=== PATIENT | female | born 1985 | race Caucasian/White ===

== ENCOUNTER 2016-04-26 12:25 | Emergency (ER) | payer BC, SELFPAY ==
[2016-04-26 13:09] LABS: Bilirubin Negative (Negative); Blood, Urine Trace (Negative); Clarity Clear (Clear); Glucose, Urine (Dipstick) Negative (Negative); Leukocyte Trace (Negative); Nitrite Negative (Negative); Protein, Urine (Dipstick) Negative (Neg-Trace); Specific Gravity, Urine 1.025 (1.005-1.030)
[2016-04-26 13:11] LABS: Bacteria/HPF Rare-Few HPF (None Seen); RBC/HPF 0-3 HPF (0-3); WBC/HPF 0-3 HPF (0-3)
[2016-04-26 13:16] LABS: Amphetamine Not Detected (NotDetected); Barbiturates Screen Not Detected (NotDetected); Benzodiazepine Screen Not Detected (NotDetected); Cocaine Metabolite Screen Not Detected (NotDetected); Medtox Control Line Valid? VALID (VALID); Methadone Not Detected (NotDetected); Methamphetamine Not Detected (NotDetected); Opiate Screen Not Detected (NotDetected); Oxycodone Screen Not Detected (NotDetected); Phencyclidine (PCP) Not Detected (NotDetected); THC/Cannabinoid Screen Not Detected (NotDetected); Tricyclic Screen Not Detected (NotDetected)
--- NOTE | 2016-04-26 14:46 | ERRECORD ---
[facility] EMERGENCY RECORD HPI ABDOMINAL PAIN (SatApr 27, 2016 00:14 LLDO) CHIEF COMPLAINTS: Patient presents for evaluation of abdominal pain, Denies abdominal distention, Denies bloating, Patient presents for evaluation of pt was here and left the ed initially w/o being triaged or seen. came back later and was seen. primary problem is some minor but recurrent cramping. no bleeding or clots or tissue. HISTORIAN: History provided by patient, History provided by patient's spouse. LOCATION FEMALE: Symptoms are generalized. QUALITY: Pain is dull in nature, described as aching, described as cramping. SEVERITY: Maximum severity of symptoms mild, Currently symptoms are mild. TIME COURSE: Patient unable to describe onset of symptoms, Symptoms are intermittent, There has been no change in the patient's symptoms over time. ASSOCIATED WITH FEMALE: No associated symptoms. MODIFYING FACTORS FEMALE: Patient . RELIEVED BY: Patient's condition relieved by time. EXACERBATED BY: Patient's condition exacerbated by nothing. RISK FACTORS FEMALE: Ectopic risk factors:, not applicable for this patient, Abdominal aortic aneurysm risk factors, not applicable for this patient, Coronary artery disease risk factors, not applicable for this patient. ROS CONSTITUTIONAL: Negative constitutional review of systems. (SatApr 27, 2016 00:28 LLDO) EYES: Negative eye review of systems, Historian denies eye pain, denies eye redness, denies eye discharge. (SatApr 27, 2016 00:40 LLDO) ENT: Negative ears, nose, throat review of systems, Historian denies epistaxis, denies rhinorrhea, denies sinus pain, denies sore throat. (SatApr 27, 2016 00:40 LLDO) CARDIOVASCULAR: Negative cardiovascular review of systems, Historian denies chest pain, no radiation, Historian denies diaphoresis, denies syncope. (SatApr 27, 2016 00:40 LLDO) RESPIRATORY: Negative respiratory review of systems, Historian denies cough, denies shortness of breath, denies sputum. (SatApr 27, 2016 00:40 LLDO) GI: Historian reports abdominal pain, denies constipation, denies diarrhea, denies hematemesis, denies hematochezia, denies jaundice, denies melena, reports nausea, denies stool changes, denies vomiting. (SatApr 27, 2016 00:28 LLDO) GENITOURINARY FEMALE: Historian reports . (SatApr 27, 2016 00:28 LLDO) MUSCULOSKELETAL: Negative musculoskeletal review of systems, Historian denies arthralgias, denies back pain, denies injury, denies myalgias, denies neck pain. (SatApr 27, 2016 00:40 LLDO) SKIN: Negative skin review of systems, Historian denies &a-1R&a+25V*p+0X*s2024D*c202B*c15G*c2P*p-0X&a-25V&a+1R Name: Kay Beatty : 1985 F30 MedRec: [id number] AcctNum: [id number] Prepared: SatApr 27, 2016 00:43 by Interface Page 1 of 4 pMD [facility] EMERGENCY RECORD cellulitis, denies rash, denies skin changes, denies skin lesions. (SatApr 27, 2016 00:40 LLDO) NEUROLOGIC: Negative neurologic review of systems, Historian denies confusion, denies dizziness, denies focal weakness, denies mental status changes. (SatApr 27, 2016 00:40 LLDO) HEMO/LYMPHATIC: Normal hematologic/lymphatic system review, Historian denies abnormal blood clotting, denies gum bleeding, denies petechiae. (SatApr 27, 2016 00:40 LLDO) ALLERGIC/IMMUNOLOGIC: Normal allergy/immunologic system review, Historian denies eczema, denies environmental allergies, denies food allergies. (SatApr 27, 2016 00:40 LLDO) PSYCHIATRIC: Negative psychiatric review of systems, Historian denies alcohol abuse, denies anxiety, denies depression, denies drug abuse, denies hallucinations. (SatApr 27, 2016 00:40 LLDO) NOTES: All systems reviewed, negative except as described above. (SatApr 27, 2016 00:28 LLDO) PAST MEDICAL HISTORY MEDICAL HISTORY: Past medical history includes history of hypertension, NO MEDS., No past medical history, Flu vaccine not up to date, Tetanus not up to date, Pneumococcal vaccine not up to date, No past medical history, Flu vaccine not up to date, Tetanus not up to verified 03/11/15. (12:47 CJEF) FEMALE SURGICAL HISTORY: Patient has no surgical history. verified 12/4/15. (12:47 CJEF) PSYCHIATRIC HISTORY: No previous psychiatric history. verified 03/11/15. (12:47 CJEF) SOCIAL HISTORY: Patient denies alcohol use, Patient denies drug use, Patient currently uses tobacco, smokes cigarettes, Lives at home, with family, Patient denies alcohol use, Patient currently uses tobacco, smokes cigarettes, Occasional or some day smoker. verified 03/11/15. (12:47 CJEF) NOTES: Nursing records reviewed, Agree with nursing records, Medication list reviewed. (SatApr 27, 2016 00:40 LLDO) KNOWN ALLERGIES No Known Drug Allergies CURRENT MEDICATIONS (12:46 CJEF) Multivit with Iron: TABLET : Strength - 27 mg iron-800 mcg : ORAL Patient Dose: Unknown. VITAL SIGNS (12:41 CJEF) VITAL SIGNS: BP: 107/71, Pulse: 85, Resp: 22, Temp: 98.7 (Oral), Pain: 6 (Intermittent), O2 sat: 98 on Room Air, Time: 04/26/2016 12:41. PHYSICAL EXAM CONSTITUTIONAL: Vital Signs Reviewed, Patient afebrile, Pulse &a-1R&a+25V*p+0X*b0974W*c202B*c15G*c2P*p-0X&a-25V&a+1R Name: Kay Beatty : 1985 F30 MedRec: [id number] AcctNum: [id number] Prepared: SatApr 27, 2016 00:43 by Interface Page 2 of 4 pMD [facility] EMERGENCY RECORD normal, Blood pressure normal, Respiratory rate normal, Patient appears non toxic, Patient appears, in mild pain distress, Patient alert and oriented to person, place and time, Nursing notes reviewed. (SatApr 27, 2016 00:30 LLDO) HEAD: Head exam normal, Head exam included findings of head atraumatic, normocephalic. (SatApr 27, 2016 00:40 LLDO) EYES: Eye exam normal, Eye exam included findings of eyelids normal to inspection, Pupils equally round and reactive to light, Extraocular muscles intact. (SatApr 27, 2016 00:40 LLDO) ENT: ENT exam normal, Ear exam normal, Nose exam normal. (SatApr 27, 2016 00:40 LLDO) NECK: Neck exam normal, Neck exam included findings of normal range of motion, Trachea midline, no meningeal signs, no tenderness. (SatApr 27, 2016 00:40 LLDO) RESPIRATORY CHEST: Respiratory and chest exam normal, Respiratory exam included findings of, Chest exam included findings of chest movement symmetrical, Chest expansion equal. (SatApr 27, 2016 00:40 LLDO) CARDIOVASCULAR: Cardiovascular assessment normal, Cardiovascular exam included findings of heart rate regular rate and rhythm, Heart sounds normal. (SatApr 27, 2016 00:40 LLDO) ABDOMEN FEMALE: Abdominal exam included findings of abdomen nontender, Bowel sounds normal, fht 146. uterus. (SatApr 27, 2016 00:30 LLDO) BACK: Back exam normal, Back exam included findings of normal inspection, range of motion normal. (SatApr 27, 2016 00:40 LLDO) UPPER EXTREMITY: Upper extremity exam normal, Upper extremity exam included findings of inspection normal, Range of motion normal. (SatApr 27, 2016 00:40 LLDO) LOWER EXTREMITY: Lower extremity exam normal, Lower extremity exam included findings of inspection normal, Range of motion normal. (SatApr 27, 2016 00:40 LLDO) NEURO: Neuro exam normal, Neuro exam findings include patient oriented to person, place and time, Speech normal, Juan C coma scale 15. (SatApr 27, 2016 00:40 LLDO) SKIN: Skin exam normal, Skin exam included findings of skin warm, dry, and normal in color, no rash. (SatApr 27, 2016 00:40 LLDO) PSYCHIATRIC: Psychiatric exam normal, Psychiatric exam included findings of patient oriented to person place and time, Normal affect. (SatApr 27, 2016 00:40 LLDO) PROBLEM LIST No recorded problems DIAGNOSIS (14:31 LWAL) FINAL: PRIMARY: ERLWBS. PRESCRIPTION No recorded prescriptions &a-1R&a+25V*p+0X*[id number]*c202B*c15G*c2P*p-0X&a-25V&a+1R Name: Kay Beatty Dustin : 1985 F30 MedRec: [id number] AcctNum: [id number] Prepared: SatApr 27, 2016 00:43 by Interface Page 3 of 4 pMD [facility] EMERGENCY RECORD DISPOSITION PATIENT: Disposition Type: Eloped, Disposition: Left Without Being Seen. (14:31 LWAL) Patient left the department. (14:32 LWAL) Patient left the department. (15:15 SCHAzalia) Evans: GUY=[place] Magallon, Barbara SALAS=MD Alea, Tera MOSS=[place] Liu, Jaki CUMMINS=[place] Roth, Slinda &a-1R&a+25V*p+0X*x5038R*c202B*c15G*c2P*p-0X&a-25V&a+1R Name: Kay Beatty : 1985 F30 MedRec: [id number] AcctNum: [id number] Prepared: SatApr 27, 2016 00:43 by Interface Page 4 of 4 pMD MTDD
--- NOTE | 2016-04-26 15:02 | PICIS ---
[facility] EMERGENCY RECORD TRIAGE (12:45 CJEF) TRIAGE NOTES: LOW ABD PAIN, PAIN IN LOWER BACK ON LEFT SIDE ALSO. FOR 2 WEEKS. (12:45 CJEF) PATIENT: NAME: Kay Beatty, AGE: 30, GENDER: female, : Sat1985, TIME OF GREET: Sarai Apr 26, 2016 12:26, PREFERRED LANGUAGE: Bhutanese, ETHNICITY: Not or , FALL RISK: NO, ECODE BILLING MAP: [facility], SSN: [id number], Zip Code: [address], KG WEIGHT: 70.31, PHONE: , , , PERSON ID: [id number], PCP: Hawa James. (12:45 CJEF) COMPLAINT: LOWER ABD PAIN. (12:45 CJEF) ADMISSION: URGENCY: 4 Non Urgent, ADMISSION SOURCE: Home, TRANSPORT: CAR, BED: TRIAGE. (12:45 CJEF) ASSESSMENT: Assessment: LOW ABD PAIN, LOW BACK PAIN FOR 2 WEEKS, PAIN WORSE IN BACK FOR THE PAST WEEK, Symptoms began 2 WEEKS. (12:47 CJEF) PAIN: Location LOW BACK AND LOW ABD, Pain is intermittent. (12:47 CJEF) SIRS SCORING: Heart Rate 55-109 (0), Temp range 96.8-101.1 (0), respiratory rate 12-24 (0), Mental Status altered: no (0), Total SIRS Score 0. (12:47 CJEF) TRIAGE SCREENING: Patient denies suicidal ideation, Patient denies presence of domestic violence. (12:49 CJEF) LMP: Last menstrual period: DEC, , P: 2, AB: 1, Patient is not lactating. (12:47 CJEF) Estimated due date October 27, 2016, Estimated age 13 weeks. (13:13 LWAL) PROVIDERS: TRIAGE NURSE: Barbara Magallon RN. (12:45 CJEF) VITAL SIGNS: BP 107/71, Pulse 85, Resp 22, Temp 98.7, (Oral), Pain 6, (Intermittent), O2 Sat 98, on Room Air, Time 04/26/2016 12:41. (12:41 CJEF) PREVIOUS VISIT ALLERGIES: No Known Drug Allergies. (12:45 CJEF) No Known Drug Allergies. (12:47 CJEF) KNOWN ALLERGIES No Known Drug Allergies CURRENT MEDICATIONS (12:46 CJEF) Multivit with Iron: TABLET : Strength - 27 mg iron-800 mcg : ORAL Patient Dose: Unknown. VITAL SIGNS (12:41 CJEF) VITAL SIGNS: BP: 107/71, Pulse: 85, Resp: 22, Temp: 98.7 (Oral), Pain: 6 (Intermittent), O2 sat: 98 on Room Air, Time: 04/26/2016 12:41. NURSING ASSESSMENT: GENITOURINARY (12:55 SCHI) CONSTITUTIONAL: Patient arrives ambulatory, Gait steady, History obtained from patient, Patient appears comfortable, Patient &a-1R&a+25V*p+0X*j6184I*c202B*c15G*c2P*p-0X&a-25V&a+1R Name: Kay Beatty : 1985 F30 MedRec: [id number] AcctNum: [id number] Prepared: SatApr 27, 2016 00:49 by Interface Page [address] [facility] EMERGENCY RECORD cooperative, Patient alert, Oriented to person, place and time, Skin warm, Skin dry, Skin normal in color, Mucous membranes pink, Mucous membranes moist, Patient is well-groomed, Patient complains of PAIN,PRESSURE, BURNING WITH URINATION. PAIN FEMALE: aching pain, to the lower abdomen, Onset of pain 2 WKS, constant, on a scale 0-10 patient rates pain as 6. GENITOURINARY FEMALE: no associated urinary complaints. ABDOMEN: Abdomen soft, non-tender, no associated nausea. NOTES: Emotional support needed and given, Patient tolerated procedure well. SAFETY: Side rails up, Cart/Stretcher in lowest position, Family at bedside, Hospital ID band on. NURSING PROCEDURE: NURSE NOTES NURSES NOTES: Notes: placed pt back in lobby due to not having a room for the md to see pt. (13:00 LWAL) Notes: updated pt on status. (14:00 LWAL) Notes: front end alignment specialist to call and ask how much longer to be seen. Pt being discharged currently and they would be able to come back to the room. but then they would not be seen quickly. Pt and family left at that time. (14:28 LWAL) NURSING PROCEDURE: URINE COLLECTION (12:55 SCHI) PATIENT IDENTIFIER: Patient actively involved in identification process, Patient's identity verified by patient stating name, Patient's identity verified by patient stating date, Patient's identity verified by hospital ID bracelet. URINE COLLECTION FEMALE: Urine collected by mid-stream clean catch, urine yellow in color, Specimen labeled in the presence of the patient and sent to lab. SAFETY: Side rails up, Cart/Stretcher in lowest position, Family at bedside, Hospital ID band on. ORDER DETAILS Order Name: Culture, Urine, Status: Active, Time: 14:26 04/26/2016, User: MARITZA, - Ordered for: MD Cosby Lloyd, - Entered by: MD Cosby Lloyd - Sarai Apr 26, 2016 14:26, - Quantity: 1, Order Name: Drug Screen, Urine, Status: Active, Time: 12:49 04/26/2016, User: GUY, - Ordered for: MD Cosby Lloyd, - Entered by: GERMANIA Magallon, [facility] Apr 26, 2016 12:49, - Quantity: 1, Order Name: Test, Urine (BHCG), Status: Active, Time: 14:26 04/26/2016, User: LL, - Ordered for: MD Cosby Lloyd, - Entered by: MD Cosby Lloyd - Sarai Apr 26, 2016 14:26, &a-1R&a+25V*p+0X*z8453Q*c202B*c15G*c2P*p-0X&a-25V&a+1R Name: Kay Beatty : 1985 F30 MedRec: [id number] AcctNum: [id number] Prepared: SatApr 27, 2016 00:49 by Interface Page [address] [facility] EMERGENCY RECORD - Quantity: 1, Order Name: Urinalysis w/ Rflx Microscopic, Status: Active, Time: 12:49 04/26/2016, User: [email or web address], - Ordered for: MD Cosby Lloyd, - Entered by: GERMANIA Magallon [facility] Apr 26, 2016 12:49, - Quantity: 1. HPI ABDOMINAL PAIN (SatApr 27, 2016 00:14 LLDO) CHIEF COMPLAINTS: Patient presents for evaluation of abdominal pain, Denies abdominal distention, Denies bloating, Patient presents for evaluation of pt was here and left the ed initially w/o being triaged or seen. came back later and was seen. primary problem is some minor but recurrent cramping. no bleeding or clots or tissue. HISTORIAN: History provided by patient, History provided by patient's spouse. LOCATION FEMALE: Symptoms are generalized. QUALITY: Pain is dull in nature, described as aching, described as cramping. SEVERITY: Maximum severity of symptoms mild, Currently symptoms are mild. TIME COURSE: Patient unable to describe onset of symptoms, Symptoms are intermittent, There has been no change in the patient's symptoms over time. ASSOCIATED WITH FEMALE: No associated symptoms. MODIFYING FACTORS FEMALE: Patient . RELIEVED BY: Patient's condition relieved by time. EXACERBATED BY: Patient's condition exacerbated by nothing. RISK FACTORS FEMALE: Ectopic risk factors:, not applicable for this patient, Abdominal aortic aneurysm risk factors, not applicable for this patient, Coronary artery disease risk factors, not applicable for this patient. ROS CONSTITUTIONAL: Negative constitutional review of systems. (SatApr 27, 2016 00:28 LLDO) EYES: Negative eye review of systems, Historian denies eye pain, denies eye redness, denies eye discharge. (SatApr 27, 2016 00:40 LLDO) ENT: Negative ears, nose, throat review of systems, Historian denies epistaxis, denies rhinorrhea, denies sinus pain, denies sore throat. (SatApr 27, 2016 00:40 LLDO) CARDIOVASCULAR: Negative cardiovascular review of systems, Historian denies chest pain, no radiation, Historian denies diaphoresis, denies syncope. (SatApr 27, 2016 00:40 LLDO) RESPIRATORY: Negative respiratory review of systems, Historian denies cough, denies shortness of breath, denies sputum. (SatApr 27, 2016 00:40 LLDO) GI: Historian reports abdominal pain, denies constipation, denies diarrhea, denies hematemesis, denies hematochezia, denies jaundice, denies melena, reports nausea, denies stool changes, denies vomiting. (SatApr 27, 2016 &a-1R&a+25V*p+0X*r9464Y*c202B*c15G*c2P*p-0X&a-25V&a+1R Name: Kay Beatty : 1985 F30 MedRec: [id number] AcctNum: [id number] Prepared: SatApr 27, 2016 00:49 by Interface Page [address] [facility] EMERGENCY RECORD 00:28 LLDO) GENITOURINARY FEMALE: Historian reports . (SatApr 27, 2016 00:28 LLDO) MUSCULOSKELETAL: Negative musculoskeletal review of systems, Historian denies arthralgias, denies back pain, denies injury, denies myalgias, denies neck pain. (SatApr 27, 2016 00:40 LLDO) SKIN: Negative skin review of systems, Historian denies cellulitis, denies rash, denies skin changes, denies skin lesions. (SatApr 27, 2016 00:40 LLDO) NEUROLOGIC: Negative neurologic review of systems, Historian denies confusion, denies dizziness, denies focal weakness, denies mental status changes. (SatApr 27, 2016 00:40 LLDO) HEMO/LYMPHATIC: Normal hematologic/lymphatic system review, Historian denies abnormal blood clotting, denies gum bleeding, denies petechiae. (SatApr 27, 2016 00:40 LLDO) ALLERGIC/IMMUNOLOGIC: Normal allergy/immunologic system review, Historian denies eczema, denies environmental allergies, denies food allergies. (SatApr 27, 2016 00:40 LLDO) PSYCHIATRIC: Negative psychiatric review of systems, Historian denies alcohol abuse, denies anxiety, denies depression, denies drug abuse, denies hallucinations. (SatApr 27, 2016 00:40 LLDO) NOTES: All systems reviewed, negative except as described above. (SatApr 27, 2016 00:28 LLDO) PAST MEDICAL HISTORY MEDICAL HISTORY: Past medical history includes history of hypertension, NO MEDS., No past medical history, Flu vaccine not up to date, Tetanus not up to date, Pneumococcal vaccine not up to date, No past medical history, Flu vaccine not up to date, Tetanus not up to verified 03/11/15. (12:47 CJEF) FEMALE SURGICAL HISTORY: Patient has no surgical history. verified 12/4/15. (12:47 CJEF) PSYCHIATRIC HISTORY: No previous psychiatric history. verified 03/11/15. (12:47 CJ) SOCIAL HISTORY: Patient denies alcohol use, Patient denies drug use, Patient currently uses tobacco, smokes cigarettes, Lives at home, with family, Patient denies alcohol use, Patient currently uses tobacco, smokes cigarettes, Occasional or some day smoker. verified 03/11/15. (12:47 CJ) NOTES: Nursing records reviewed, Agree with nursing records, Medication list reviewed. (SatApr 27, 2016 00:40 LLDO) PHYSICAL EXAM CONSTITUTIONAL: Vital Signs Reviewed, Patient afebrile, Pulse normal, Blood pressure normal, Respiratory rate normal, Patient appears non toxic, Patient appears, in mild pain distress, Patient alert and oriented to person, place and time, Nursing notes reviewed. (SatApr 27, 2016 00:30 LLDO) HEAD: Head exam normal, Head exam included findings of head atraumatic, normocephalic. (SatApr 27, 2016 00:40 LLDO) &a-1R&a+25V*p+0X*p0379X*c202B*c15G*c2P*p-0X&a-25V&a+1R Name: Kay Beatty : 1985 F30 MedRec: [id number] AcctNum: [id number] Prepared: SatApr 27, 2016 00:49 by Interface Page [address] [facility] EMERGENCY RECORD EYES: Eye exam normal, Eye exam included findings of eyelids normal to inspection, Pupils equally round and reactive to light, Extraocular muscles intact. (SatApr 27, 2016 00:40 LLDO) ENT: ENT exam normal, Ear exam normal, Nose exam normal. (SatApr 27, 2016 00:40 LLDO) NECK: Neck exam normal, Neck exam included findings of normal range of motion, Trachea midline, no meningeal signs, no tenderness. (SatApr 27, 2016 00:40 LLDO) RESPIRATORY CHEST: Respiratory and chest exam normal, Respiratory exam included findings of, Chest exam included findings of chest movement symmetrical, Chest expansion equal. (SatApr 27, 2016 00:40 LLDO) CARDIOVASCULAR: Cardiovascular assessment normal, Cardiovascular exam included findings of heart rate regular rate and rhythm, Heart sounds normal. (SatApr 27, 2016 00:40 LLDO) ABDOMEN FEMALE: Abdominal exam included findings of abdomen nontender, Bowel sounds normal, fht 146. uterus. (SatApr 27, 2016 00:30 LLDO) BACK: Back exam normal, Back exam included findings of normal inspection, range of motion normal. (SatApr 27, 2016 00:40 LLDO) UPPER EXTREMITY: Upper extremity exam normal, Upper extremity exam included findings of inspection normal, Range of motion normal. (SatApr 27, 2016 00:40 LLDO) LOWER EXTREMITY: Lower extremity exam normal, Lower extremity exam included findings of inspection normal, Range of motion normal. (SatApr 27, 2016 00:40 LLDO) NEURO: Neuro exam normal, Neuro exam findings include patient oriented to person, place and time, Speech normal, Juan C coma scale 15. (SatApr 27, 2016 00:40 LLDO) SKIN: Skin exam normal, Skin exam included findings of skin warm, dry, and normal in color, no rash. (SatApr 27, 2016 00:40 LLDO) PSYCHIATRIC: Psychiatric exam normal, Psychiatric exam included findings of patient oriented to person place and time, Normal affect. (SatApr 27, 2016 00:40 LLDO) EVENTS TRANSFER: Triage to Emergency Triage. (Sarai Apr 26, 2016 12:45 CJEF) Emergency Triage to Waiting. (14:18 LWAL) Removed from Emergency Waiting. (14:32 LWAL) Readmit to Emergency Triage. (15:09 SCHI) Removed from Emergency Triage. (15:15 SCHI) PROBLEM LIST No recorded problems DIAGNOSIS (14:31 LWAL) FINAL: PRIMARY: ERLWBS. DISPOSITION &a-1R&a+25V*p+0X*p2134Q*c202B*c15G*c2P*p-0X&a-25V&a+1R Name: Kay Beatty : 1985 F30 MedRec: [id number] AcctNum: [id number] Prepared: SatApr 27, 2016 00:49 by Interface Page [address] [facility] EMERGENCY RECORD PATIENT: Disposition Type: Eloped, Disposition: Left Without Being Seen. (14:31 LWAL) Patient left the department. (14:32 LWAL) Patient left the department. (15:15 SCHI) PRESCRIPTION No recorded prescriptions IMAGING (14:41 LWAL) *SUPPLY CHARGE SHEET: Image captured from scanner. ADMIN DIGITAL SIGNATURE: GERMANIA Roth, Sheryl. (18:54 [facility]) MD Cosby Lloyd. (SatApr 27, 2016 00:41 LLDO) RESULTS (13:19 SCHI) LABORATORY: Drug Screen, Urine Collection DT: [facility] Apr 26, 2016 13:00, THC/Cannabinoid Screen Not Detected , Range (NotDetected), Phencyclidine (PCP) Not Detected , Range (NotDetected), Cocaine Metabolite Screen Not Detected , Range (NotDetected), Methamphetamine Not Detected , Range (NotDetected), Opiate Screen Not Detected , Range (NotDetected), Amphetamine Not Detected , Range (NotDetected), Benzodiazepine Screen Not Detected , Range (NotDetected), Tricyclic Screen Not Detected , Range (NotDetected), Methadone Not Detected , Range (NotDetected), Barbiturates Screen Not Detected , Range (NotDetected), Oxycodone Screen Not Detected , Range (NotDetected), Propoxyphene Screen Not Detected , Range (NotDetected), Drug Screen Cutoff , Range (), The Hometicax Profile-V Panel for Qualitative Drugs of Abuse assays are for, presumptive screening testing only. The drug class and detection limits, are as follows: Drug Class Detection Limit Amphetamine , 500 ng/mL* Barbiturates 200 ng/mL , Benzodiazepines 150 ng/mL* Cocaine 150 ng/mL*, Methamphetamine 500 ng/mL* Methadone 200, ng/mL* Opiates 100 ng/mL* Oxycodone , 100 ng/mL PCP 25 ng/mL Propoxyphene , 300 ng/mL Tricyclic Antidepressants 300 ng/mL Cannabinoids (THC) , 50 ng/mL Tests which yield a presumptive positive result must be , &a-1R&a+25V*p+0X*b3009Q*c202B*c15G*c2P*p-0X&a-25V&a+1R Name: Kay Beatty : 1985 F30 MedRec: [id number] AcctNum: [id number] Prepared: SatApr 27, 2016 00:49 by Interface Page [address] [facility] EMERGENCY RECORD tested using a more specific alternate chemical method in order to obtain, a confirmed analytical result. Additional confirmation and identification, may be ordered on a routine basis, if desired. Presumptive positive urines, are held for two weeks. . Urine Microscopic Collection DT: SatApr 26, 2016 13:00, RBC/HPF 0-3 HPF, Range (0-3), WBC/HPF 0-3 HPF, Range (0-3), *Squamous Epithelial 4-6 - H HPF, Range (0-3), Bacteria/HPF Rare-Few HPF, Range (None Seen). Urinalysis w/ Rflx Microscopic Collection DT: Sarai Apr 26, 2016 13:00, Color Yellow , Range (Yellow), Clarity Clear , Range (Clear), Specific [place], Urine 1.025 , Range (1.005-1.030), pH, Urine 6.0 , Range (5.0-9.0), *Leukocyte Trace - H , Range (Negative), Nitrite Negative , Range (Negative), Protein, Urine (Dipstick) Negative mg/dL, Range (Neg-Trace), Glucose, Urine (Dipstick) Negative mg/dL, Range (Negative), Ketone, Urine Negative mg/dL, Range (Negative), *Urobilinogen 2.0 - H mg/dL, Range (0.2-1.0), Bilirubin Negative , Range (Negative), *Blood, Urine Trace - H , Range (Negative). Evans: GUY=GERMANIA Magallon, Barbara SALAS=MD Alea, Tera MOSS=GERMANIA Liu, Jaki CUMMINS=GERMANIA Roth, Sheryl &a-1R&a+25V*p+0X*s7061Q*c202B*c15G*c2P*p-0X&a-25V&a+1R Name: Kay Beatty : 1985 F30 MedRec: [id number] AcctNum: [id number] Prepared: SatApr 27, 2016 00:49 by Interface Page 7 of 7 pMD MTDD
== END 2016-04-26 14:28 | disposition left against medical advice (07) ==
LOC: MADERS 12:25
DX: O99.89 Other specified diseases and conditions complicating pregnancy, childbirth and the puerperium (principal); R10.9 Unspecified abdominal pain; Z3A.13 13 weeks gestation of pregnancy
CPT/HCPCS: 80306; 81003; 81015

== ENCOUNTER 2016-04-26 15:17 | Emergency (ER) | payer SELFPAY ==
--- NOTE | 2016-04-26 18:18 | ERRECORD ---
[facility] EMERGENCY RECORD HPI ABDOMINAL PAIN (17:56 LLDO) CHIEF COMPLAINTS: Patient presents for evaluation of abdominal pain, Patient presents for evaluation of abdominal distention, Patient presents for evaluation of pt is about 13 weeks and for the past couple of days has been having intermittent cramping insuprapubic and low back. had normal urine earlier today. has already had ultrasound that showed harvey IUP. HISTORIAN: History provided by patient, History provided by patient's spouse. LOCATION FEMALE: Symptoms are generalized, no radiation, No migration of pain. QUALITY: Pain is dull in nature, described as cramping, described as no blood or tissue. SEVERITY: Maximum severity of symptoms mild, Currently symptoms are mild. TIME COURSE: Sudden onset of symptoms, Symptoms are intermittent, There has been no change in the patient's symptoms over time. ASSOCIATED WITH FEMALE: No associated symptoms. RELIEVED BY: Patient's condition relieved by nothing. EXACERBATED BY: Patient's condition exacerbated by nothing. RISK FACTORS FEMALE: No ectopic risk factors present, No abdominal aortic aneurysm risk factors, No coronary artery disease risk factors. ROS CONSTITUTIONAL: Historian reports fatigue. (18:01 LLDO) EYES: Negative eye review of systems, Historian denies eye pain, denies eye redness, denies eye discharge. (18:06 LLDO) ENT: Negative ears, nose, throat review of systems, Historian denies epistaxis, denies rhinorrhea, denies sinus pain, denies sore throat. (18:06 LLDO) GENITOURINARY FEMALE: Historian reports . (18:01 LLDO) MUSCULOSKELETAL: Negative musculoskeletal review of systems, Historian denies arthralgias, denies back pain, denies injury, denies myalgias, denies neck pain. (18:06 LLDO) SKIN: Negative skin review of systems, Historian denies cellulitis, denies rash, denies skin changes, denies skin lesions. (18:06 LLDO) NEUROLOGIC: Negative neurologic review of systems, Historian denies confusion, denies dizziness, denies focal weakness, denies mental status changes. (18:06 LLDO) HEMO/LYMPHATIC: Normal hematologic/lymphatic system review, Historian denies abnormal blood clotting, denies gum bleeding, denies petechiae. (18:06 LLDO) ALLERGIC/IMMUNOLOGIC: Normal allergy/immunologic system review, Historian denies eczema, denies environmental allergies, denies food allergies. (18:06 LLDO) PSYCHIATRIC: Negative psychiatric review of systems, Historian denies alcohol abuse, denies anxiety, denies depression, denies drug abuse, denies hallucinations. (18:06 LLDO) &a-1R&a+25V*p+0X*y1686Z*c202B*c15G*c2P*p-0X&a-25V&a+1R Name: Kay Beatty : 1985 F30 MedRec: [id number] AcctNum: [id number] Prepared: [facility] Apr 26, 2016 18:53 by Interface Page 1 of 3 pMD [facility] EMERGENCY RECORD NOTES: All systems reviewed, negative except as described above. (18:01 LLDO) PAST MEDICAL HISTORY MEDICAL HISTORY: Past medical history includes history of hypertension, NO MEDS., No past medical history, Flu vaccine not up to date, Tetanus not up to date, Pneumococcal vaccine not up to date, No past medical history, Flu vaccine not up to date, Tetanus not up to verified 03/11/15. (16:05 SCHI) FEMALE SURGICAL HISTORY: Patient has no surgical history. verified 03/11/15. (16:05 SCHI) PSYCHIATRIC HISTORY: No previous psychiatric history. verified 03/11/15. (16:05 SCHI) SOCIAL HISTORY: Patient denies alcohol use, Patient denies drug use, Patient currently uses tobacco, smokes cigarettes, Lives at home, with family, Patient denies alcohol use, Patient currently uses tobacco, smokes cigarettes, Occasional or some day smoker. verified 03/11/15. (16:05 SCHI) NOTES: Nursing records reviewed, Agree with nursing records, Medication list reviewed. (18:06 LLDO) KNOWN ALLERGIES No Known Drug Allergies CURRENT MEDICATIONS (15:22 SCHI) Multivit with Iron: TABLET : Strength - 27 mg iron-800 mcg : ORAL Patient Dose: Unknown. PHYSICAL EXAM CONSTITUTIONAL: Vital Signs Reviewed, Patient afebrile, Pulse normal, Blood pressure normal, Respiratory rate normal, Patient appears non toxic, Patient appears, in mild pain distress, Patient alert and oriented to person, place and time, Nursing notes reviewed. (18:03 LLDO) HEAD: Head exam normal, Head exam included findings of head atraumatic, normocephalic. (18:06 LLDO) EYES: Eye exam normal, Eye exam included findings of eyelids normal to inspection, Pupils equally round and reactive to light, Extraocular muscles intact. (18:06 LLDO) ENT: ENT exam normal, Ear exam normal, Nose exam normal. (18:06 LLDO) NECK: Neck exam normal, Neck exam included findings of normal range of motion, Trachea midline, no meningeal signs, no tenderness. (18:06 LLDO) ABDOMEN FEMALE: Abdominal exam included findings of abdomen nontender, Bowel sounds normal, Liver normal, Spleen normal, no distension, no mass, no pulsatile masses, no peritoneal signs, Rovsing's sign absent, uterus size appropriate for dates with FHTs of 148. (18:03 LLDO) &a-1R&a+25V*p+0X*v2262L*c202B*c15G*c2P*p-0X&a-25V&a+1R Name: Kay Beatty Dustin : 1985 F30 MedRec: [id number] AcctNum: [id number] Prepared: [facility] Apr 26, 2016 18:53 by Interface Page 2 of 3 pMD [facility] EMERGENCY RECORD PELVIC: Exam findings include complaint of lower abdominal pain, no vaginal bleeding present. (18:03 LLDO) BACK: Back exam included findings of normal inspection, range of motion normal, no tenderness, no costovertebral angle tenderness, no Scoliosis, no pain with straight leg raise. (18:03 LLDO) UPPER EXTREMITY: Upper extremity exam normal, Upper extremity exam included findings of inspection normal, Range of motion normal. (18:06 LLDO) LOWER EXTREMITY: Lower extremity exam normal, Lower extremity exam included findings of inspection normal, Range of motion normal. (18:06 LLDO) NEURO: Neuro exam normal, Neuro exam findings include patient oriented to person, place and time, Speech normal, Shevlin coma scale 15. (18:06 LLDO) SKIN: Skin exam normal, Skin exam included findings of skin warm, dry, and normal in color, no rash. (18:06 LLDO) PSYCHIATRIC: Psychiatric exam normal, Psychiatric exam included findings of patient oriented to person place and time, Normal affect. (18:06 LLDO) PROBLEM LIST No recorded problems DIAGNOSIS (18:07 LLDO) FINAL: PRIMARY: Threatened . PRESCRIPTION (18:08 LLDO) Tylenol-Codeine #3: TABLET : 300 mg-30 mg : ORAL : Quantity: 1-2 Unit: tab(s) Route: ORAL Schedule: every 4 hours prn Dispense: 24 Unit: tab(s) May substitute. Refills: No Refills . NOTES: No Refills. DISPOSITION PATIENT: Disposition Type: Discharge, Disposition: *Discharge Home. (18:07 LLDO) [facility]. [facility] Evans: LLDO=MD Alea, Tera SCHI=GERMANIA Roth, Slinda &a-1R&a+25V*p+0X*p3555B*c202B*c15G*c2P*p-0X&a-25V&a+1R Name: Kay Beatty : 1985 F30 MedRec: [id number] AcctNum: [id number] Prepared: Sarai Apr 26, 2016 18:53 by Interface Page 3 of 3 pMD MTDD
--- NOTE | 2016-04-26 18:24 | PICIS ---
[facility] EMERGENCY RECORD TRIAGE (15:21 SCHI) TRIAGE NOTES: LOW ABD PAIN. (15:21 SCHI) PATIENT: NAME: Kay Beatty, AGE: 30, GENDER: female, : Sat1985, TIME OF GREET: SatApr 26, 2016 15:18, PREFERRED LANGUAGE: Setswana, ETHNICITY: Not or , FALL RISK: NO, ECODE BILLING MAP: [facility], SSN: [id number], Zip Code: [address], KG WEIGHT: 70.31, PHONE: , , , PERSON ID: [id number], PCP: [facility]. (15:21 SCHI) COMPLAINT: LOWER ABD PAIN. (15:21 SCHI) ADMISSION: URGENCY: 4 Non Urgent, ADMISSION SOURCE: Home, TRANSPORT: Walk-in, BED: WAIT. (15:21 SCHI) ASSESSMENT: Assessment: ALERT AND ORIENTED X 4, SKIN WARM AND DRY RESP EVEN AND UNLABORED,. (16:05 SCHI) PROVIDERS: TRIAGE NURSE: Sheryl Roth RN. (15:21 SCHI) PREVIOUS VISIT ALLERGIES: No Known Drug Allergies. (15:21 SCHI) No Known Drug Allergies. (16:05 SCHI) KNOWN ALLERGIES No Known Drug Allergies CURRENT MEDICATIONS (15:22 SCHI) Multivit with Iron: TABLET : Strength - 27 mg iron-800 mcg : ORAL Patient Dose: Unknown. NURSING ASSESSMENT: GENITOURINARY (16:32 SCHI) CONSTITUTIONAL: Patient arrives ambulatory, Gait steady, History obtained from patient, Patient appears comfortable, Patient cooperative, Patient alert, Oriented to person, place and time, Skin warm, Skin dry, Skin normal in color, Mucous membranes pink, Mucous membranes moist, Patient is well-groomed, Patient complains of PAIN,PRESSURE, BURNING WITH URINATION FOR 2 WKS, IUP 13 WKS. PAIN FEMALE: burning pain, pressure pain, to the suprapubic region, to the perineum, intermittent. GENITOURINARY FEMALE: Associated with urinary complaints, dysuria. ABDOMEN: Abdomen soft, non-tender, no associated nausea. NOTES: Emotional support needed and given, Patient tolerated procedure well. SAFETY: Side rails up, Cart/Stretcher in lowest position, Family at bedside, Hospital ID band on. NURSING PROCEDURE: DISCHARGE NOTE (18:24 SCHI) DISCHARGE: Patient discharged to home, ambulating without assistance, family driving, accompanied by other family member, Summary of Care printed/ provided, Patient requested and was provided an electronic copy of Discharge Instructions, Transition record given &a-1R&a+25V*p+0X*i2530O*c202B*c15G*c2P*p-0X&a-25V&a+1R Name: Kay Beatty : 1985 F30 MedRec: [id number] AcctNum: [id number] Prepared: [facility] Apr 26, 2016 18:59 by Interface Page 1 of 5 pMD [facility] EMERGENCY RECORD to patient, Discharge instructions given to patient, Simple or moderate discharge teaching performed, Prescriptions given and instructions on side effects given, Medication reconciliation form given, Above person(s) verbalized understanding of discharge instructions and follow-up care, Patient treated and evaluated by physician. BELONGINGS: Belongings and valuables with patient at time of discharge include:, Belongings remain with patient, Valuables remain with patient. SAFETY: Side rails up, Cart/Stretcher in lowest position, Family at bedside, Hospital ID band on. NURSING PROCEDURE: HEART TONES (17:08 SCHI) PATIENT IDENTIFIER: Patient actively involved in identification process, Patient's identity verified by patient stating name, Patient's identity verified by hospital ID bracelet. HEART TONES: heart tones indicated to verify , heart toned obtained with doppler, by SHANNAN SOLO, heart rate 148-152. NOTES: Patient tolerated procedure well. HPI ABDOMINAL PAIN (17:56 LLDO) CHIEF COMPLAINTS: Patient presents for evaluation of abdominal pain, Patient presents for evaluation of abdominal distention, Patient presents for evaluation of pt is about 13 weeks and for the past couple of days has been having intermittent cramping insuprapubic and low back. had normal urine earlier today. has already had ultrasound that showed harvey IUP. HISTORIAN: History provided by patient, History provided by patient's spouse. LOCATION FEMALE: Symptoms are generalized, no radiation, No migration of pain. QUALITY: Pain is dull in nature, described as cramping, described as no blood or tissue. SEVERITY: Maximum severity of symptoms mild, Currently symptoms are mild. TIME COURSE: Sudden onset of symptoms, Symptoms are intermittent, There has been no change in the patient's symptoms over time. ASSOCIATED WITH FEMALE: No associated symptoms. RELIEVED BY: Patient's condition relieved by nothing. EXACERBATED BY: Patient's condition exacerbated by nothing. RISK FACTORS FEMALE: No ectopic risk factors present, No abdominal aortic aneurysm risk factors, No coronary artery disease risk factors. ROS CONSTITUTIONAL: Historian reports fatigue. (18:01 LLDO) EYES: Negative eye review of systems, Historian denies eye pain, denies eye redness, denies eye discharge. (18:06 LLDO) ENT: Negative ears, nose, throat review of systems, Historian denies epistaxis, denies rhinorrhea, denies sinus pain, denies sore &a-1R&a+25V*p+0X*j7933X*c202B*c15G*c2P*p-0X&a-25V&a+1R Name: Kay Beatty : 1985 F30 MedRec: [id number] AcctNum: [id number] Prepared: [facility] Apr 26, 2016 18:59 by Interface Page 2 of 5 pMD [facility] EMERGENCY RECORD throat. (18:06 LLDO) GENITOURINARY FEMALE: Historian reports . (18:01 LLDO) MUSCULOSKELETAL: Negative musculoskeletal review of systems, Historian denies arthralgias, denies back pain, denies injury, denies myalgias, denies neck pain. (18:06 LLDO) SKIN: Negative skin review of systems, Historian denies cellulitis, denies rash, denies skin changes, denies skin lesions. (18:06 LLDO) NEUROLOGIC: Negative neurologic review of systems, Historian denies confusion, denies dizziness, denies focal weakness, denies mental status changes. (18:06 LLDO) HEMO/LYMPHATIC: Normal hematologic/lymphatic system review, Historian denies abnormal blood clotting, denies gum bleeding, denies petechiae. (18:06 LLDO) ALLERGIC/IMMUNOLOGIC: Normal allergy/immunologic system review, Historian denies eczema, denies environmental allergies, denies food allergies. (18:06 LLDO) PSYCHIATRIC: Negative psychiatric review of systems, Historian denies alcohol abuse, denies anxiety, denies depression, denies drug abuse, denies hallucinations. (18:06 LLDO) NOTES: All systems reviewed, negative except as described above. (18:01 LLDO) PAST MEDICAL HISTORY MEDICAL HISTORY: Past medical history includes history of hypertension, NO MEDS., No past medical history, Flu vaccine not up to date, Tetanus not up to date, Pneumococcal vaccine not up to date, No past medical history, Flu vaccine not up to date, Tetanus not up to verified 03/11/15. (16:05 SCHI) FEMALE SURGICAL HISTORY: Patient has no surgical history. verified 03/11/15. (16:05 SCHI) PSYCHIATRIC HISTORY: No previous psychiatric history. verified 03/11/15. (16:05 SCHI) SOCIAL HISTORY: Patient denies alcohol use, Patient denies drug use, Patient currently uses tobacco, smokes cigarettes, Lives at home, with family, Patient denies alcohol use, Patient currently uses tobacco, smokes cigarettes, Occasional or some day smoker. verified 03/11/15. (16:05 SCHI) NOTES: Nursing records reviewed, Agree with nursing records, Medication list reviewed. (18:06 LLDO) PHYSICAL EXAM CONSTITUTIONAL: Vital Signs Reviewed, Patient afebrile, Pulse normal, Blood pressure normal, Respiratory rate normal, Patient appears non toxic, Patient appears, in mild pain distress, Patient alert and oriented to person, place and time, Nursing notes reviewed. (18:03 LLDO) HEAD: Head exam normal, Head exam included findings of head atraumatic, normocephalic. (18:06 LLDO) &a-1R&a+25V*p+0X*i1217R*c202B*c15G*c2P*p-0X&a-25V&a+1R Name: Kay Beatty : 1985 F30 MedRec: [id number] AcctNum: [id number] Prepared: Sarai Apr 26, 2016 18:59 by Interface Page 3 of 5 pMD [facility] EMERGENCY RECORD EYES: Eye exam normal, Eye exam included findings of eyelids normal to inspection, Pupils equally round and reactive to light, Extraocular muscles intact. (18:06 LLDO) ENT: ENT exam normal, Ear exam normal, Nose exam normal. (18:06 LLDO) NECK: Neck exam normal, Neck exam included findings of normal range of motion, Trachea midline, no meningeal signs, no tenderness. (18:06 LLDO) ABDOMEN FEMALE: Abdominal exam included findings of abdomen nontender, Bowel sounds normal, Liver normal, Spleen normal, no distension, no mass, no pulsatile masses, no peritoneal signs, Rovsing's sign absent, uterus size appropriate for dates with FHTs of 148. (18:03 LLDO) PELVIC: Exam findings include complaint of lower abdominal pain, no vaginal bleeding present. (18:03 LLDO) BACK: Back exam included findings of normal inspection, range of motion normal, no tenderness, no costovertebral angle tenderness, no Scoliosis, no pain with straight leg raise. (18:03 LLDO) UPPER EXTREMITY: Upper extremity exam normal, Upper extremity exam included findings of inspection normal, Range of motion normal. (18:06 LLDO) LOWER EXTREMITY: Lower extremity exam normal, Lower extremity exam included findings of inspection normal, Range of motion normal. (18:06 LLDO) NEURO: Neuro exam normal, Neuro exam findings include patient oriented to person, place and time, Speech normal, Juan C coma scale 15. (18:06 LLDO) SKIN: Skin exam normal, Skin exam included findings of skin warm, dry, and normal in color, no rash. (18:06 LLDO) PSYCHIATRIC: Psychiatric exam normal, Psychiatric exam included findings of patient oriented to person place and time, Normal affect. (18:06 LLDO) EVENTS TRANSFER: Triage to Emergency Waiting. ([facility] Apr 26, 2016 15:[facility] to Main ED -03. (15:39 [facility]) Removed from Emergency Main ED -03. (18:48 SCHI) PROBLEM LIST No recorded problems DIAGNOSIS (18:07 LLDO) FINAL: PRIMARY: Threatened . DISPOSITION PATIENT: Disposition Type: Discharge, Disposition: *Discharge Home. (18:07 LLDO) Patient left the department. (18:48 SCHI) &a-1R&a+25V*p+0X*c3348L*c202B*c15G*c2P*p-0X&a-25V&a+1R Name: Kay Beatty : 1985 F30 MedRec: [id number] AcctNum: [id number] Prepared: SatApr 26, 2016 18:59 by Interface Page 4 of 5 pMD [facility] EMERGENCY RECORD INSTRUCTION (18:09 LLDO) DISCHARGE: MISCARRIAGE THREATENED. FOLLOWUP: Follow up with Primary Care Physician as scheduled. SPECIAL: Follow-up with your OB-PLAN REP doc. PRESCRIPTION (18:08 LLDO) Tylenol-Codeine #3: TABLET : 300 mg-30 mg : ORAL : Quantity: 1-2 Unit: tab(s) Route: ORAL Schedule: every 4 hours prn Dispense: 24 Unit: tab(s) May substitute. Refills: No Refills . NOTES: No Refills. IMAGING (18:47 SCHI) *DISCHARGE INSTRUCTIONS RECEIPT: Image captured from scanner. TALBOT: Image captured from scanner. ADMIN DIGITAL SIGNATURE: MD Cosby Lloyd. (18:10 LLDO) GERMANIA Roth, Sheryl. (18:45 SCHI) Evans: CJEF=GERMANIA Magallon, Barbara LLDO=MD Cosby Lloyd SCHI=GER[place] Roth, Sheryl &a-1R&a+25V*p+0X*g2249B*c202B*c15G*c2P*p-0X&a-25V&a+1R Name: Kay Beatty : 1985 F30 MedRec: [id number] AcctNum: [id number] Prepared: SatApr 26, 2016 18:59 by Interface Page 5 of 5 pMD [facility] MEDICATION RECONCILIATION You were seen in the Emergency Department on: SatApr 26, 2016 KNOWN ALLERGIES No Known Drug Allergies HOME MEDICATIONS CONTINUE PRESCRIBED Multivit with Iron : TABLET : Strength - 27 mg iron-800 mcg : ORAL Continue as prescribed Patient had been taking: Dose unknown Notes from the emergency department Reviewed with family Reviewed with patient PRESCRIPTIONS (1) &a-1R&a+25V*p+0X*o7600I*c202B*c15G*c2P*p-0X&a-25V&a+1R Name: Kay Beatty : 1985 F30 MedRec: [id number] AcctNum: [id number] Prepared: Sarai Apr 26, 2016 18:59 by Interface Jocy MCKEON
== END 2016-04-26 18:24 | disposition home or self-care (01) ==
LOC: MADERS 15:17
DX: O20.0 Threatened abortion (principal)
CPT/HCPCS: 99283